=== PATIENT | male | born 2000 | race Hispanic/Latino ===

== ENCOUNTER 2024-11-27 20:15 | Emergency (ER) | payer OTHER ==
[~2024-11-27] VITALS: Ht 172.7 cm; Wt 90.7 kg
--- NOTE | 2024-11-27 21:25 | ERN ---
ED Note History of Present Illness Stated Complaint: TONGUE FEELS WEIRD,SLURRING WORDS Time Seen by MD: 20:44 Dictation: PATIENT IS A 24-YEAR-OLD MALE WHO CAME TO THE ER DUE TO FEELING HIS TONGUE NUMB, PER AT BEDSIDE HE SAID THE SHE COULD NOT UNDERSTAND WHAT HE WAS SAYING. INITIAL EVALUATION IN THE EMERGENCY DEPARTMENT THE PATIENT HAS NO NEUROLOGIC ABNORMALITIES ON THE 1ST IMPRESSION. I OFFER FURTHER CT OF HEAD TO RULE OUT ANY BRAIN ISSUES. INITIALLY THE PATIENT OKAY WITH A CT OF THE HEAD, BUT LATER THE PATIENT DECIDED TO LEAVE, SAID THAT HE DOES NOT WANT ANY IMAGES TO BE PERFORMED. Review of System Dictation NEGATIVE EXCEPT PER HPI: REPORTS TINGLING OF HIS TONGUE. CONSTITUTIONAL: NEGATIVE FOR FEVER,CHILLS, AND WEIGHT LOSS EYES: NEGATIVE FOR INJURY, PAIN,REDNESS, AND DISCHARGE ENT: NEGATIVE FOR INJURY,PAIN OR SWELLING CARDIOVASCULAR: DENIES CHEST PAIN, PALPITATIONS, AND EDEMA RESPIRATORY: NEGATIVE FOR SHORTNESS OF BREATH, COUGH, AND WHEEZING, ABDOMEN/GI: NEGATIVE FOR ABDOMINAL PAIN, NAUSEA, VOMITING, DIARRHEA, AND CONSTIPATION BACK: NEGATIVE FOR INJURY AND PAIN : NEGATIVE FOR INJURY, BLEEDING AND DISCHARGE MS/EXTREMITY: NEGATIVE FOR INJURY AND DEFORMITY SKIN: NEGATIVE FOR RASH, AND DISCOLORATION NEURO: NEGATIVE FOR HEADACHE, WEAKNESS, NUMBNESS, TINGLING, AND SEIZURE PSYCH: NEGATIVE FOR SUICIDE IDEATION, HOMICIDAL IDEATION, AND HALLUCINATIONS Physical Exam Dictation GENERAL: AWAKE, ALERT, NAD HEAD/FACE: NORMOCEPHALIC, ATRAUMATIC EYES: PERRL, EOMI, VISION AT BASELINE ENT: ORAL CAVITY CLEAR, TMS CLEAR, NO SIGNS OF INFECTION NECK: TRACHEA MIDLINE, SUPPLE, NO NUCHAL RIGIDITY CARDIOVASCULAR: RRR, NORMAL S1/S2, NO MRGS, NO JVD RESPIRATORY: CTAB, NO RESPIRATORY DISTRESS, NO RALES OR WHEEZES ABDOMEN: SOFT , NO TENDER SKIN: WARM, DRY, NORMAL TURGOR, NO RASH MS/EXTREMITY: PULSES EQUAL, NO CYANOSIS, NEUROVASCULAR INTACT, FROM NEURO: COAX4, GCS 15, STRENGTH 5/5, CN 2-12 INTACT, NORMAL CEREBELLAR EXAM, NORMAL GAIT, PSYCH: NORMAL BEHAVIOR, MOOD, AND AFFECT NORMAL ED Course ED Course Orders Procedure Category Date Status Time Ct Head/Brain W/O CT 11/27/24 Logged Contrast 21:11 Medical Decision Making [facility] PATIENT IS A 24-YEAR-OLD MALE WHO CAME TO THE ER DUE TO FEELING HIS TONGUE NUMB, PER AT BEDSIDE HE SAID THE SHE COULD NOT UNDERSTAND WHAT HE WAS SAYING. INITIAL EVALUATION IN THE EMERGENCY DEPARTMENT THE PATIENT HAS NO NEUROLOGIC ABNORMALITIES ON THE 1ST IMPRESSION. I OFFER FURTHER CT OF HEAD TO RULE OUT ANY BRAIN ISSUES. INITIALLY THE PATIENT OKAY WITH A CT OF THE HEAD, BUT LATER THE PATIENT DECIDED TO LEAVE, SAID THAT HE DOES NOT WANT ANY IMAGES TO BE PERFORMED. TONGUE NUMBNESS, NO FURTHER WORKUP PERFORMED SINCE THE PATIENT WANTS TO GO HOME. DX & DISP Disposition: Discharge Departure Impression: Primary Impression: Numbness of tongue Condition: Stable Additional Instructions: RETURN TO ER FOR ANY ACUTE OR WORSENING SYMPTOMS. FOLLOW-UP IN 1-2 DAYS WITH PRIMARY PROVIDER FOR RECHECK OF TODAY'S SYMPTOMS. Referrals: SELF,REFERRAL (PCP) AFSANEH IVEY MD November 27, 2024 21:25
[2024-11-27 21:34] VITALS: BP 139/85; PULSE 80; RESP 16; TEMP 98.3
== END 2024-11-27 21:40 | disposition home or self-care (01) ==
LOC: EDH 20:15
DX: R20.0 Anesthesia of skin (principal)
CPT/HCPCS: 99281